=== PATIENT | female | born 2000 | race Caucasian/White ===

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

== ENCOUNTER 2018-01-15 11:13 | Emergency (ER) | payer OTHER ==
[~2018-01-15] VITALS: Ht 162.6 cm; Wt 63.5 kg
[~2018-01-15 11:13] MED LIST changes: +KEFLEX500 M1 PO; +MIRALAX17 GM PO; +PRENATAL PO; +PROCTOZONE-HC30 GM TOP
[2018-01-15] MEDS ORDERED: ERYTHROMYCIN E3.5 G2 OPHTHALMIC (12:12)
[2018-01-15 12:35] VITALS: BP 117/70
== END 2018-01-15 12:39 | disposition home or self-care (01) ==
LOC: ER 11:13
DX: S05.02XA Injury of conjunctiva and corneal abrasion without foreign body, left eye, initial encounter (principal); X58.XXXA Exposure to other specified factors, initial encounter; Y92.89 Other specified places as the place of occurrence of the external cause; Y93.89 Activity, other specified; Y99.8 Other external cause status

== ENCOUNTER 2018-04-21 11:30 | Emergency (ER) | payer OTHER ==
[~2018-04-21] VITALS: Ht 162.6 cm; Wt 86.2 kg
[~2018-04-21 11:30] MED LIST changes: +ERYTHROMYCIN E3.5 G2 OPHTHALMIC
[2018-04-21] MEDS ORDERED: FLONASE 0.05%50 MCG NASAL (12:51)
[2018-04-21 13:21] VITALS: BP 119/75
== END 2018-04-21 13:22 | disposition home or self-care (01) ==
LOC: ER 11:30
DX: O99.513 Diseases of the respiratory system complicating pregnancy, third trimester (principal); J06.9 Acute upper respiratory infection, unspecified; J02.9 Acute pharyngitis, unspecified; H69.92 Unspecified Eustachian tube disorder, left ear; Z90.89 Acquired absence of other organs; Z3A.38 38 weeks gestation of pregnancy

== ENCOUNTER 2019-01-29 18:07 | Emergency (ER) | payer OTHER ==
[~2019-01-29] VITALS: Ht 165.1 cm; Wt 68.0 kg
[~2019-01-29 18:07] MED LIST changes: +FLONASE 0.05%50 MCG NASAL
[2019-01-29 19:30] LABS: URINE BILIRUBIN NEGATIVE (Negative); URINE BLOOD NEGATIVE (Negative); URINE CLARITY CLEAR; URINE COLOR YELLOW; URINE GLUCOSE-RANDOM* NEGATIVE (Negative); URINE KETONES NEGATIVE (Negative); URINE LEUKOCYTES-REFLEX TRACE (Negative); URINE NITRITE-REFLEX NEGATIVE (Negative); URINE PROTEIN (DIPSTICK) NEGATIVE (Negative); URINE SPECIFIC GRAVITY 1.025 (1.005-1.035); URINE UROBILINOGEN 0.2 E.U./dl (0.2-1.0)
[2019-01-29 20:37] VITALS: BP 110/78
[2019-01-29 20:49] LABS: ABSOLUTE NEUTROPHILS 5.6 thou/uL (1.4-8.2); BASOPHILS 0.7 % (0.0-2.0); EOSINOPHILS 4.1 % (0.0-3.0); HEMATOCRIT 40.8 % (37.0-47.0); HEMOGLOBIN 13.5 gm/dL (12.0-15.0); LYMPHOCYTES 29.7 % (24.0-44.0); MCH 26.9 pg (26.0-34.0); MCHC 33.1 g/dL (28.0-37.0); MCV 81.1 fL (80.0-100.0); MONOCYTES 6.4 % (1.0-8.0); PLATELET COUNT 379 thou/uL (150-400); POLYS 59.1 % (36.0-66.0); RBC 5.03 mil/uL (4.20-5.00); RDW 15.1 % (10.5-14.5); WBC 9.5 thou/uL (4.0-11.0)
[2019-01-29 20:54] LABS: ANION GAP 9 mmol/L (7-16); BUN 21 mg/dL (7-18); CALCIUM 9.2 mg/dL (8.5-10.1); CHLORIDE 101 mmol/L (98-107); CO2 26 mmol/L (21-32); CREATININE 0.9 mg/dL (0.6-1.0); GLUCOSE 103 mg/dL (74-106); POTASSIUM 3.9 mmol/L (3.5-5.1); SODIUM 136 mmol/L (136-145)
[2019-01-29 20:59] LABS: ALBUMIN 3.9 g/dL (3.4-5.0); DIRECT BILIRUBIN < 0.1 mg/dL (<0.1-0.3); LIPASE 113 U/L (73-393); SGOT 18 U/L (15-37); SGPT 18 U/L (30-65); TOTAL BILIRUBIN 0.2 mg/dL (<0.1-1.0); TOTAL PROTEIN 8.2 g/dL (6.4-8.2)
[2019-01-29] MEDS ORDERED: OMEPRAZOLE20 M1 PO (21:17)
== END 2019-01-29 21:29 | disposition home or self-care (01) ==
LOC: ER 18:07
PROVIDERS: Emergency Medicine
DX: R10.12 Left upper quadrant pain (principal); F17.210 Nicotine dependence, cigarettes, uncomplicated; Z90.89 Acquired absence of other organs